=== PATIENT | male | born 1940 | race Caucasian/White ===

== ENCOUNTER 2016-10-29 21:51 | Inpatient (IN) | payer OTHER ==
[~2016-10-29] VITALS: Ht 172.7 cm; Wt 102.6 kg
--- NOTE | ~2016-10-29 | HP ---
Unit #: [id number] #: [id number] Patient: CHARITO ESPINOZA [id number] [address] [place], [place] [address] [id number] I MR#: [id number] NAME: CHARITO ESPINOZA. ROOM: 09051 Age: 76 Sex: M Admission Date: 10/30/2016 : 1940 Attending Physician: Jaymie Landaverde M.D. Primary Care Physician: Ricky Benitez M.D. HISTORY AND PHYSICAL CHIEF COMPLAINT Extensive right leg DVT. HISTORY This pleasant 76-year-old male with Lewy body dementia, is admitted for an extensive right leg DVT. The patient's in July. His daughter last checked his legs two weeks ago and patient had no edema. Yesterday she noticed that the patient's right leg was swollen. He, himself, is a poor historian and believes that his leg became swollen one or two days ago. Denies leg pain, shortness of breath or chest pain. He presents to this emergency department with significant edema of the right leg. Doppler performed shows a right leg essentially occlusive DVT. Heparin drip has been ordered. No previous history of blood clots. PAST MEDICAL HISTORY 1. Lewy body dementia. 2. Previous history of hypertension. 3. DJD and chronic pain. 4. Hernia repair. 5. Left hip replacement. 6. Benign neck mass removed. ALLERGIES None. HOME MEDICATIONS 1. Namenda XR 28 mg daily. 2. Exelon patch 13.3 mg/hour daily. 3. Multivitamin daily. 4. B12 1000 mcg daily. 5. Celexa 20 mg daily. 6. Neurontin 300 mg daily. 7. Wellbutrin 100 mg daily. FAMILY HISTORY Negative for blood clots. SOCIAL HISTORY The patient lives alone although family checks on him frequently. He stopped smoking and drinking 20 years ago. REVIEW OF SYSTEMS Unit #: [id number] #: [id number] Patient: CHARITO ESPINOZA Difficult to obtain due to patient's memory loss. PHYSICAL EXAMINATION GENERAL APPEARANCE: Very pleasant 76-year-old male who currently is in no acute distress. VITAL SIGNS: Temperature 98.6, pulse 83, respirations 16, blood pressure is 134/77. O2 saturation 92% on room air. HEENT: Eyes PERRLA. Extraocular muscles are intact. Pharynx is benign. NECK: Supple without adenopathy or thyromegaly. CHEST: Reveals a few crackles at the left base. CARDIAC: Normal S1 and S2 without murmur. ABDOMEN: Bowel sounds are present. No hepatosplenomegaly, tenderness or masses. EXTREMITIES: Notable for extensive edema of the right leg. Pulses are present by Doppler per the ER physician. Mild erythema of the right leg. NEUROLOGIC EXAM: The patient is awake, alert. His cranial nerves are intact. He has equal strength throughout. DIAGNOSTIC STUDIES LABORATORY: Admission labs - hematocrit is 47.8, white blood count is 11.6, normal platelet count, normal coags. SMA-12 - glucose 132. BMP normal. Cardiac markers negative. IMAGING: Chest x-ray - no acute disease. DJD. Doppler of the legs show a diffuse, essentially occlusive, right leg DVT. ASSESSMENT 1. Extensive right leg DVT: Family believes that the patient has become less mobile/become more sedentary. Likely his sedentary lifestyle is the cause of his DVT. 2. Lewy body dementia. 3. History of hypertension. 4. DJD with chronic pain. 5. Recent loss of spouse. PLANS 1. Heparin drip. 2. Will ask interventional radiology to consult in the morning to determine if patient is a candidate for catheter directed thrombolytics. Will also ask hematology to consult. 3. Will check urinalysis. Dictated by Jaymie Landaverde M.D. AML/df TD: 10/30/2016 05:51 JOB #: [id number] Unit #: [id number] #: [id number] Patient: CHARITO ESPINOZA HISTORY AND PHYSICAL Page 1 of 1 X Jaymie Landaverde MD HISTORY AND PHYSICAL
--- NOTE | ~2016-10-29 | US85 ---
[facility] A Service of [facility] & [facility] RADIOLOGY TEXT RESULTS PATIENT: CHARITO ESPINOZA LOCATION: [facility] [id number] : 40 UNIT #: [id number] AGE: [address]: DEIDRE MYERS V SEX: M ORDER DR: [id number] [facility] [address] [place], [place] [address] [id number] I MR#: [id number] Acc #: [id number] NAME: CHARITO ESPINOZA. : 1940 SEX: M STUDY DATE/TIME: 10/29/2016 23:33 UNIT: [facility] ROOM: [facility] STUDY DESCRIPTION: US LE Veins Unilat or Ltd Stdy Attending Physician: Deidre Myers M.D. Ordering Physician: Mann Leroy D.O. Primary Care Physician: Ricky Benitez M.D. MEDICAL IMAGING REPORT This report is preliminary unless electronic signature is present EXAM Right leg vein Doppler 10/29/2016 23:33 INDICATION Right lower extremity pain and swelling for 2 months. No trauma. FINDINGS Monroy-scale, color flow, spectral Doppler waveform analysis is performed of the right lower extremity venous system. There is diffuse deep venous thrombosis throughout the right lower extremity which is essentially occlusive. The saphenous vein is patent. IMPRESSION Diffuse essentially occlusive DVT in the right leg. Dictated by... Salty Gage Jr., M.D. THIS IS AN ELECTRONICALLY VERIFIED REPORT Salty Gage Jr., M.D. at 10/30/2016 9:10 PM BRAD/galo TD: 10/30/2016 10:30 JOB #: [id number] MEDICAL IMAGING REPORT Page 1 of 1 COPY
--- NOTE | ~2016-10-29 | CO ---
Unit #: [id number] #: [id number] Patient: CHARITO ESPINOZA [id number] [facility]. [place], [place] [address] [id number] I MR#: [id number] NAME: CHARITO ESPINOZA. ROOM: 573 Age: 76 Sex: M Admission Date: 10/30/2016 : 1940 Attending Physician: Alexsander Contreras M.D. Primary Care Physician: Ricky Benitez M.D. Consultation Date: 10/30/2016 CONSULTATION REPORT REASON FOR EVAL Extensive right-sided DVT; please evaluate. HISTORY OF PRESENT ILLNESS The patient is a 76-year-old gentleman with history of dementia. His , and he himself states that he just sits around and watches TV all day. Was found to have a right-sided DVT, age unknown, but the daughter states that she saw the legs a couple weeks ago and they were normal. He himself does not remember how many days all this happened other than some discomfort in the right leg and he states that his right knee has been hurting him. He has no complaints. No chest pain. No hemoptysis, hematemesis, melena. PAST MEDICAL HISTORY His past history is remarkable for Lewy body dementia, history of degenerative joint disease with left hip replacement and right knee pain in the past, history of hypertension. FAMILY HISTORY Negative for blood clots. SOCIAL HISTORY He quit drinking and smoking in 1981 according to him, but I do not know good his memory is, and I did not check it, but he has been off cigarettes and alcohol for decades. CHRONIC MEDICATIONS Multivitamins, B12, Celexa, Neurontin, Wellbutrin, Exelon and Namenda. ALLERGIES No known allergies. REVIEW OF SYSTEMS Review of systems is not very reliable. He says he is fine. He stays home. He is living alone, watches TV all day. Does not move around much. Otherwise, 6 or 8 systems were within normal limits. PHYSICAL EXAMINATION GENERAL: He looks stated age. Very pleasant. LYMPHATICS: No palpable nodes. LUNGS: Clear. ABDOMEN: No organomegaly. EXTREMITIES: Left leg is normal to exam. Right leg has 2+ edema. Pulses are 2+. There is no evidence of active cellulitis. There is no warmth. Unit #: [id number] #: [id number] Patient: CHARITO ESPINOZA There is just mild degree of erythema below the knee. RECTAL: Not performed. DIAGNOSTIC STUDIES LABORATORY: Chemistry - Glucose 132, BUN 17, creatinine 1.4, sodium 135, potassium 3.8, chloride 101, CO2 26. Liver function tests are within normal limits. Hemoglobin 15.9, hematocrit 47.8, white count 11.6, platelets 162,000. IMPRESSION This 76-year-old gentleman, very little mobility, had right knee pain and lives alone, has dementia, developed swelling of the leg, age undetermined, and he is very comfortable at this point with mild degree of discomfort. No chest pain or hemoptysis. Negative family history. Negative past history of clotting and has quit smoking multiple decades ago. PLAN As the primary care has asked intervention radiology to look at him, if they want to intervene, from our part, I do not think we want to do any extensive hypercoagulable workup. We shall check a D-dimer, make sure it is below 500, and proceed with Eliquis 2.5 mg b.i.d. for the coming 3-6 months. If interventional radiology proceeds with the procedure, we may consider increasing the Eliquis to 5 mg twice daily for a short while and then bring it down to 2.[address] he will not need monitoring, and it will be very difficult to adjust warfarin dosage. Dictated by... Huong Ibarra/ryne TD: 10/30/2016 12:37 JOB #: [id number] CONSULTATION REPORT Page 1 of 1 X Serge Nicolas MD X CONSULTATION REPORT
--- NOTE | ~2016-10-29 | CR72 ---
[facility] A Service of [facility] & [facility] RADIOLOGY TEXT RESULTS PATIENT: CHARITO ESPINOZA LOCATION: [facility] 57- : 40 UNIT #: [id number] AGE: [address]: DEIDRE MYERS V SEX: M ORDER DR: [id number] [facility] [address] [place], [place] [address] [id number] I MR#: [id number] Acc #: [id number] NAME: CHARITO ESPINOZA. : 1940 SEX: M STUDY DATE/TIME: 10/29/2016 22:28 UNIT: [facility] ROOM: [facility] STUDY DESCRIPTION: CR Chest Single View Portable Attending Physician: Deidre Myers M.D. Ordering Physician: Mann Leroy D.O. Primary Care Physician: Ricky Benitez M.D. MEDICAL IMAGING REPORT This report is preliminary unless electronic signature is present EXAM Single view chest 10/29/2016 COMPARISON Chest two views dated 12/24/2012 HISTORY Right leg edema, shortness of air for three days. FINDINGS Frontal view of the chest was obtained. Lungs are well aerated. Heart and mediastinum are of normal limits. Degenerative changes are at multiple levels. Bilateral shoulder osteoarthritic changes are seen. IMPRESION 1. No acute cardiopulmonary disease is seen. 2. Degenerative changes in the spine and bilateral shoulders are noted. Dictated by... Neyda Toure M.D. THIS IS AN ELECTRONICALLY VERIFIED REPORT Neyda Toure M.D. at 10/30/2016 7:34 PM CPR/paola TD: 10/30/2016 09:57 JOB #: [id number] MEDICAL IMAGING REPORT Page 1 of 1 COPY
--- NOTE | ~2016-10-29 | EKG ---
PATIENT: CHARITO ESPINOZA UNIT #: [id number] Ventricular Rate: 62 BPM Atrial Rate: 62 BPM P-R Interval: 216 ms QRS Duration: 144 ms Q-T Interval: 460 ms QTC Calculation(Bezet): 466 ms P Letcher: 46 degrees Calculated R Letcher: -73 degrees Calculated T Letcher: 28 degrees Diagnosis Line: Sinus rhythm with 1st degree A-V block Diagnosis Line: Right bundle branch block Diagnosis Line: Left anterior fascicular block Diagnosis Line: Bifascicular block Diagnosis Line: Abnormal ECG Diagnosis Line: When compared with ECG of 24-DEC-2012 16:23, Diagnosis Line: No significant change was found Diagnosis Line: Confirmed by LETY RICHARDS MD ([id number]) on Diagnosis Line: 10/31/2016 5:03:03 PM INTERPRETING MD: SUSIE ZUNIGA
--- NOTE | ~2016-10-29 | CR123 ---
[facility] A Service of [facility] & [facility] RADIOLOGY TEXT RESULTS PATIENT: CHARITO ESPINOZA LOCATION: [place] [address] : 40 UNIT #: [id number] AGE: [address]: DEIDRE MYERS V SEX: M ORDER DR: [id number] [facility] [address] [place], [place] [address] [id number] I MR#: [id number] Acc #: [id number] NAME: CHARITO ESPINOZA : 1940 SEX: M STUDY DATE/TIME: 11/01/2016 21:14 UNIT: [facility] ROOM: [facility] STUDY DESCRIPTION: CR Foot 2 Views Lt Attending Physician: Deidre Myers M.D. Ordering Physician: Edwin Daniel M.D. Primary Care Physician: Ricky Benitez M.D. MEDICAL IMAGING REPORT This report is preliminary unless electronic signature is present EXAM Left foot series, 11/01/2016 COMPARISON None. HISTORY Lateral left foot pain near fifth metatarsal region on and off for a year. It started after a fall. FINDINGS 3 views of the left foot were obtained. No acute displaced fracture, dislocation or destructive bony mass. There is a small spur noted in the posterior calcaneal region. Atherosclerotic vascular calcifications are noted in the soft tissues of the distal leg and foot. Dictated by... Neyda Toure M.D. THIS IS AN ELECTRONICALLY VERIFIED REPORT Neyda Toure M.D. at 11/02/2016 1:27 PM CPR/ljfaisal TD: 11/01/2016 23:33 JOB #: [id number] MEDICAL IMAGING REPORT Page 1 of 1 COPY
--- NOTE | ~2016-10-29 | CO ---
Unit #: [id number] #: [id number] Patient: CHARITO ESPINOZA [id number] [place], [place] [address] [id number] I MR#: [id number] NAME: CHARITO ESPINOZA. ROOM: 573 Age: 76 Sex: M Admission Date: 10/30/2016 : 1940 Attending Physician: Alexsander Contreras M.D. Primary Care Physician: Ricky Benitez M.D. Consultation Date: 10/30/2016 CONSULTATION REPORT REASON FOR CONSULT Right lower extremity deep vein thrombosis. HISTORY OF PRESENT ILLNESS This is a 76-year-old male with a history of dementia. The patient resides at home alone and his family frequently checks on him. He was speaking with his stepdaughter on the telephone the other night and told her "my right leg is twice the size of my left leg." They came to visit him the following day and brought him to the emergency room for evaluation. He underwent right lower extremity ultrasound which showed an extensive right leg deep vein thrombosis. Mr. Espinoza does not smoke. He reports that his last colonoscopy was about six years ago. PAST MEDICAL HISTORY 1. Dementia. 2. Hypertension. 3. Umbilical hernia repair. ALLERGIES No known drug allergies. MEDICATION LIST 1. Gabapentin 300 mg p.o. daily. 2. Celexa 20 mg p.o. daily. 3. Vitamin B12 1000 mcg p.o. daily. 4. Daily multivitamin. 5. Namenda 28 mg p.o. daily. 6. Tramadol 50 mg p.o. every eight hours p.r.n. pain. 7. Wellbutrin 100 mg p.o. daily. 8. Rivastigmine one each daily. SOCIAL HISTORY The patient resides alone. He is recently a . He has a history of smoking many years ago but has since stopped. He denies alcohol or drug use. FAMILY HISTORY Noncontributory for blood clotting disorders. REVIEW OF SYSTEMS Complete review of systems was completed and negative unless noted in the History of Present Illness. It should be noted that complete review difficult to obtain due to patient's dementia. Unit #: [id number] #: [id number] Patient: CHARITO ESPINOZA PHYSICAL EXAMINATION VITAL SIGNS: Temperature 97.3, blood pressure 138/70, heart rate 67, O2 sat 97%. GENERAL APPEARANCE: This is a well nourished, well developed male in no distress. HEENT: Normocephalic. Pupils equal and reactive to light. NECK: No carotid bruits noted. CARDIAC: Regular rate and rhythm. No murmurs noted. LUNGS: Clear to auscultation, nonlabored. Patient is on room air. ABDOMEN: Positive bowel sounds. Abdomen is soft, nontender. No distention. Well-healed midline scar from a previous umbilical hernia repair many years ago. VASCULAR: Palpable radial, femoral, dorsalis pedis, and posterior tibialis pulses bilaterally. INTEGUMENTARY: Skin is warm and dry. Right lower extremity with 4+ pitting edema. No obvious sores, lesions or non-healing wounds. NEUROLOGICAL: Cranial nerves II-XII grossly intact. Normal strength and sensation bilaterally, specifically in all toes where he reports sensation equally between both feet. PSYCHIATRIC: The patient is alert and oriented to person, place and time. DIAGNOSTIC STUDIES IMAGING: The patient underwent right lower extremity deep vein thrombosis ultrasound which showed extensive right leg deep vein thrombosis. LABORATORY: Sodium 135, potassium 3.8, chloride 101, CO2 26, BUN 17, creatinine 1.4, glucose 132, hemoglobin 16.9, hematocrit 47.8, WBC 11.6, platelets 162. ASSESSMENT AND PLAN 1. Right leg DVT. 2. Right lower extremity edema. PLAN Ultrasound imaging favors chronic appearance of the deep vein thrombosis and, thus, at this time thrombolysis would not be recommended. Agree with current recommendations concerning anticoagulation. The patient is currently on a heparin drip and will be converted to Coumadin or Eliquis. Agree with either of these recommendations as long as anticoagulation is continued for a period of about six months. Would also recommend elevating the extremity. Order placed for application of Iron bandages going from the forefoot to the thigh of the right leg to help with the right lower extremity edema. Dictated by... Ignacio Maher APRN for Huong Forrester/selvin TD: 10/31/2016 08:57 JOB #: [id number] Unit #: [id number] #: [id number] Patient: CHARITO ESPINOZA CONSULTATION REPORT Page 1 of 1 X X CONSULTATION REPORT
[~2016-10-29 21:51] MED LIST: ASPIRIN81 M2 PO; CELEXA20 MG PO; DEPO-TESTOT200 MG/ML IM; DIAZEPAM10 MG PO; FERRO-TIME325 MG PO; FISH OIL 1,001000 M1 PO; GABAPENTIN300 MG PO; PERCOCET10 PO; TYLENOL325 M1 PO; VITAMIN C500 M1 PO; VITAMIN D32000 UNIT PO; ZOCOR5 MG PO
[2016-10-29 23:50] LABS: BASOPHIL# 0.1 X10e3 (0-0.3); BASOPHIL% 0.5 % (0-2.5); EOSINOPHIL# 0.2 X10e3 (0-0.7); HEMATOCRIT 47.8 % (38.0-50.0); HEMOGLOBIN 15.9 gm/dL (13.0-16.0); LYMPHOCYTE# 2.7 X10e3 (1.0-3.5); MEAN CELL VOLUME 92.1 FL (83-96); MEAN CORPUSCULAR HEMOGLOBIN 30.5 PG (28-34); MEAN CORPUSCULAR HGB CONC 33.1 g/dL (30-36); MEAN PLATELET VOLUME 8.2 FL (6.5-11.5); MONOCYTE# 1.2 X10e3 (0-1.0); NEUTROPHIL# 7.5 X10e3 (1.5-7.1); NEUTROPHIL% 64.5 % (40-75); PLATELET COUNT 162 X10e3 (140-420); WHITE BLOOD COUNT 11.6 X10e3 (4.0-10.5)
[2016-10-30 00:03] LABS: POC - CKMB 1.4 ng/mL (0.0-7.9); POC - TROPONIN <0.05 ng/mL (<=0.05)
[2016-10-30 00:04] LABS: PARTIAL THROMBOPLASTIN TIME 26.5 SECONDS (23.5-31.3); PROTHROMBIN TIME (PATIENT) 11.3 SECONDS (10.0-11.7)
[2016-10-30 00:05] LABS: DIFF IND NO
[2016-10-30 00:13] LABS: ALBUMIN SERUM 4.2 g/dL (3.5-5.0); BILIRUBIN,TOTAL 0.6 mg/dL (0.2-2.0); BUN/CREATININE RATIO 12.14; CALCIUM SERUM 9.4 mg/dL (8.4-10.2); CREATININE SERUM 1.4 mg/dL (0.6-1.4); GLOM FILT RATE Estimated 48.5 mL/min (>60); POTASSIUM 3.8 mmol/L (3.5-5.1); PROTEIN TOTAL SERUM 7.9 g/dL (6.0-8.3)
[2016-10-30] MEDS ORDERED: MULTI VITAMIN1 EACH PO (11:01)
[2016-10-30] MEDS ORDERED: VITAMIN B122500 MCG PO (11:01)
[2016-10-30] MEDS ORDERED: NAMENDA XR21 MG PO (11:02)
[2016-10-30] MEDS ORDERED: WELLBUTRIN100 MG PO (11:03)
[2016-10-30] MEDS ORDERED: TRAMADOL HCL50 M1 PO (11:03)
[2016-10-30] MEDS ORDERED: EXELON1 EAC1 TD (11:05)
[2016-10-31 06:04] LABS: HEMATOCRIT 40.9 % (38.0-50.0); HEMOGLOBIN 14.1 gm/dL (13.0-16.0); MEAN CELL VOLUME 91.7 FL (83-96); MEAN CORPUSCULAR HEMOGLOBIN 31.5 PG (28-34); MEAN CORPUSCULAR HGB CONC 34.4 g/dL (30-36); MEAN PLATELET VOLUME 8.3 FL (6.5-11.5); RED BLOOD COUNT 4.46 X10e (3.90-5.60); WHITE BLOOD COUNT 10.4 X10e3 (4.0-10.5)
[2016-11-01 06:30] LABS: HEMATOCRIT 40.1 % (38.0-50.0); HEMOGLOBIN 13.9 gm/dL (13.0-16.0); MEAN CELL VOLUME 91.3 FL (83-96); MEAN CORPUSCULAR HEMOGLOBIN 31.5 PG (28-34); MEAN CORPUSCULAR HGB CONC 34.5 g/dL (30-36); MEAN PLATELET VOLUME 8.4 FL (6.5-11.5); RED BLOOD COUNT 4.4 X10e (3.90-5.60); RED CELL DISTRIBUTION WIDTH 13.7 % (11.0-15.5); WHITE BLOOD COUNT 9.5 X10e3 (4.0-10.5)
[2016-11-02 05:12] LABS: HEMATOCRIT 40.5 % (38.0-50.0); HEMOGLOBIN 14.2 gm/dL (13.0-16.0); MEAN CORPUSCULAR HEMOGLOBIN 31.9 PG (28-34); MEAN PLATELET VOLUME 8.1 FL (6.5-11.5); RED BLOOD COUNT 4.45 X10e (3.90-5.60); RED CELL DISTRIBUTION WIDTH 13.7 % (11.0-15.5); WHITE BLOOD COUNT 10.5 X10e3 (4.0-10.5)
[2016-11-02] MEDS ORDERED: ACETAMINOPHEN PO (15:48)
[2016-11-02] MEDS ORDERED: ELIQUIS5 MG PO (15:49)
[2016-11-02] MEDS ORDERED: B-121000 MC1 PO (15:52)
== END 2016-11-02 17:25 | disposition home or self-care (01) | DRG 301 ==
LOC: CED 21:51 → CEDOF 10-30 01:30 → C5C 10-30 01:30 → CEDOF 10-30 02:50 → CED 10-30 02:50 → CEDOF 10-30 07:45 → C5C 10-30 08:09
PROVIDERS: Emergency Medicine; Internal Medicine
DX: I82.401 Acute embolism and thrombosis of unspecified deep veins of right lower extremity (principal); G31.83 Neurocognitive disorder with Lewy bodies; F02.80 Dementia in other diseases classified elsewhere, unspecified severity, without behavioral disturbance, psychotic disturbance, mood disturbance, and anxiety; I10 Essential (primary) hypertension; G89.29 Other chronic pain; Z87.891 Personal history of nicotine dependence; M79.672 Pain in left foot; Z96.642 Presence of left artificial hip joint
CPT/HCPCS: 36415; 71010; 73620; 80053; 82553; 83880; 84484; 85025; 85027; 85379; 85610; 85730; 93005; 93971; 96374; 97116; 97162; 97165; 99285; G8978-GP; G8979-GP; G8987-GO; G8988-GO; G8989-GO; J1644